=== PATIENT | female | born 1985 | race Caucasian/White ===

== ENCOUNTER 2020-02-13 09:15 | Outpatient (CLI) | payer OTHER ==
[~2020-02-13] VITALS: Ht 157.5 cm; Wt 70.0 kg
[~2020-02-13 09:15] MED LIST: IBUP-1222 PO; LABE100T6 PO; OXYC-302 PO
[2020-02-13 09:35] VITALS: BP 139/87
[2020-02-13] MEDS ORDERED: PREN-3 PO (09:42)
[2020-02-13 09:51] LABS: MICROSCOPIC INDICATED
[2020-02-13] MEDS ORDERED: BETAMETHASONE 6 MG/ML, 5ML IM ONE (10:14)
[2020-02-13] MEDS ORDERED: BETAMETHASONE 6 MG/ML, 5ML IM SCH (10:30)
== END 2020-02-13 12:25 | disposition home or self-care (01) ==
LOC: LDOP 09:15
PROVIDERS: ATTEND Obstetrics & Gynecology
DX: O62.8 Other abnormalities of forces of labor (principal); Z3A.35 35 weeks gestation of pregnancy
CPT/HCPCS: 59025; 81001; 87081; 87086; 87147; 99201; G0463

== ENCOUNTER 2020-02-22 00:59 | Inpatient (IN) | payer OTHER ==
[~2020-02-22] VITALS: Ht 157.5 cm; Wt 70.0 kg
[2020-02-22] VITALS (9 sets, daily range): BP systolic 146–179; BP diastolic 86–112
[~2020-02-22 00:59] MED LIST changes: +PREN-3 PO
[2020-02-22] MEDS ORDERED: D5%-LACTATED RINGERS 1,000 ML IV SCH (01:17)
[2020-02-22] MEDS ORDERED: LACTATED RINGERS 1,000 ML IV SCH (01:17)
[2020-02-22] MEDS ORDERED: FENTANYL/BUPIV./NS/PF 250 ML EPIDCONT SCH (01:17)
[2020-02-22] MEDS ORDERED: OXYTOCIN 30U/ 0.9% NaCL 500ML 500 ML IV ONE (01:17)
[2020-02-22] MEDS ORDERED: FENTANYL PF 100 MCG/2ML ONE (01:24)
[2020-02-22] MEDS ORDERED: LABETALOL 5MG/ML, 20ML ONE ×2 (01:24→17:05)
[2020-02-22] MEDS ORDERED: OXYTOCIN 30U/ 0.9% NaCL 500ML 500 ML ONE ×2 (01:25→03:45)
[2020-02-22] MEDS ORDERED: NEWBORN KIT ONE (01:25)
[2020-02-22] MEDS ORDERED: CLINDAMYCIN PMX 900MG/50ML 50 ML ONE (01:26)
[2020-02-22] MEDS ORDERED: CALCIUM CARBONATE 500 MG TAB.CHEW PO PRN ×2 (01:30→03:30)
[2020-02-22] MEDS ORDERED: LABETALOL 5MG/ML, 20ML IVPush PRN ×3 (01:30)
[2020-02-22] MEDS ORDERED: hydrALAzine 20 MG/ML, 1ML IVPush ONE (01:30)
[2020-02-22] MEDS ORDERED: SODIUM CITRATE/CITRIC ACID 30 ML UDC PO PRN (01:30)
[2020-02-22] MEDS ORDERED: TERBUTALINE 1 MG/ML, 1ML SQ PRN (01:30)
[2020-02-22] MEDS ORDERED: LACTATED RINGERS 1,000 ML IVBOLUS PRN (01:30)
[2020-02-22] MEDS ORDERED: FENTANYL PF 100 MCG/2ML IVPush PRN (01:30)
[2020-02-22] MEDS ORDERED: TERBUTALINE 1 MG/ML, 1ML IVPush PRN (01:30)
[2020-02-22] MEDS ORDERED: CLINDAMYCIN PMX 900MG/50ML 50 ML IVPB SCH (01:30)
[2020-02-22] MEDS ORDERED: FENTANYL PF 100 MCG/2ML IV PRN (01:30)
[2020-02-22] MEDS ORDERED: METOCLOPRAMIDE 5 MG/ML, 2ML IVPush PRN (01:30)
[2020-02-22] MEDS ORDERED: ONDANSETRON 2MG/ML, 2ML IVPush PRN (01:30)
[2020-02-22 01:49] LABS: BASOPHILS # (AUTO) 0.05 x10^3/uL (0-0.1); BASOPHILS % (AUTO) 0 % (0-1); EOSINOPHILS # (AUTO) 0.11 x10^3/uL (0-0.4); EOSINOPHILS % (AUTO) 1 % (1-7); LYMPHOCYTES # (AUTO) 3.52 x10^3/uL (1-3.4); LYMPHOCYTES % (AUTO) 33 % (22-44); MD NO; MEAN CORPUSCULAR HEMOGLOBIN 30.7 pg (27.0-34.8); MEAN CORPUSCULAR HGB CONC 34.3 g/dL (32.4-35.8); MEAN CORPUSCULAR VOLUME 89.7 fL (80-100); MEAN PLATELET VOLUME 9.6 fL (7.4-10.4); MONOCYTES # (AUTO) 0.79 x10^3/uL (0.2-0.8); MONOCYTES % (AUTO) 7 % (2-9); NEUTROPHILS # (AUTO) 6.22 x10^3/uL (1.8-6.8); NEUTROPHILS % (AUTO) 58 % (42-75); PLATELET COUNT 202 x10^3/uL (130-400); RED BLOOD COUNT 4.24 x10^6/uL (3.82-5.3); RED CELL DISTRIBUTION WIDTH 14.6 % (9.6-15.2)
[2020-02-22 01:59] LABS: ALANINE AMINOTRANSFERASE 9 U/L (12-78); ALBUMIN 1.8 g/dL (3.4-5.0); ANION GAP 10 mmol/L (5-15); CALCIUM 8.6 mg/dL (8.5-10.1); CHLORIDE 107 mmol/L (98-107); CREATININE 0.87 mg/dL (0.55-1.02)
[2020-02-22 02:01] LABS: ALKALINE PHOSPHATASE 292 U/L (45-117); BILIRUBIN,TOTAL 0.2 mg/dL (0.2-1.0); TOTAL PROTEIN 5.5 g/dL (6.4-8.2)
[2020-02-22 02:03] LABS: BILIRUBIN, DIRECT < 0.1 mg/dL (0.1-0.2)
[2020-02-22] MEDS ORDERED: BUPIVACAINE 0.25% ONE (02:13)
[2020-02-22] MEDS ORDERED: OXYTOCIN 30U/ 0.9% NaCL 500ML 500 ML IV SCH (03:01)
[2020-02-22] MEDS ORDERED: HYDROcodone/APAP 5/325 TABLET ONE (03:03)
[2020-02-22] MEDS ORDERED: IBUPROFEN 600 MG TABLET ONE (03:10)
[2020-02-22] MEDS: HYDROcodone/APAP 5/325 TABLET PO PRN ×2 (03:13→07:42)
[2020-02-22] MEDS ORDERED: ONDANSETRON 2MG/ML, 2ML IV PRN (03:30)
[2020-02-22] MEDS ORDERED: ACETAMINOPHEN 325 MG TABLET PO PRN (03:30)
[2020-02-22] MEDS ORDERED: MISOPROSTOL 200 MCG TABLET PR PRN (03:30)
[2020-02-22] MEDS ORDERED: HYDROcodone/APAP 5/325 TABLET PO PRN (03:30)
[2020-02-22] MEDS ORDERED: SIMETHICONE 80 MG CHEW TAB PO PRN (03:30)
[2020-02-22 03:38] LABS: MICROSCOPIC INDICATED
[2020-02-22 03:48] LABS: CREATININE,URINE RANDOM 46.3 mg/dL
[2020-02-22] MEDS: PRENATAL VIT/IRON/FA 1 EACH TABLET PO SCH (07:42)
[2020-02-22 11:14] LABS: MEAN CORPUSCULAR HEMOGLOBIN 30.7 pg (27.0-34.8); MEAN CORPUSCULAR VOLUME 90.3 fL (80-100); MEAN PLATELET VOLUME 9.3 fL (7.4-10.4); PLATELET COUNT 189 x10^3/uL (130-400); RED BLOOD COUNT 3.63 x10^6/uL (3.82-5.3); RED CELL DISTRIBUTION WIDTH 14.3 % (9.6-15.2)
[2020-02-22 11:36] LABS: BASOPHILS # (AUTO) 0.05 x10^3/uL (0-0.1); BASOPHILS % (AUTO) 0 % (0-1); EOSINOPHILS # (AUTO) 0.02 x10^3/uL (0-0.4); EOSINOPHILS % (AUTO) 0 % (1-7); LYMPHOCYTES # (AUTO) 2.36 x10^3/uL (1-3.4); LYMPHOCYTES % (AUTO) 17 % (22-44); MD SCAN; MONOCYTES % (AUTO) 5 % (2-9); NEUTROPHILS # (AUTO) 10.73 x10^3/uL (1.8-6.8); NEUTROPHILS % (AUTO) 77 % (42-75)
[2020-02-22] MEDS: ACETAMINOPHEN 325 MG TABLET PO PRN ×2 (11:59→17:01)
[2020-02-22] MEDS ORDERED: LABETALOL 5MG/ML, 20ML IVPush ONE (17:00)
[2020-02-22] MEDS: niFEDipine ER 30 MG TABLET.ER PO SCH (17:00)
[2020-02-23 00:10] VITALS: BP 138/90
[2020-02-23 04:15] VITALS: BP 134/83
[2020-02-23] MEDS: ACETAMINOPHEN 325 MG TABLET PO PRN ×4 (04:40→20:23)
[2020-02-23 07:34] VITALS: BP 129/87
[2020-02-23] MEDS: DOCUSATE 100 MG CAPSULE PO PRN ×2 (08:12→20:23)
[2020-02-23] MEDS: niFEDipine ER 30 MG TABLET.ER PO SCH (08:12)
[2020-02-23] MEDS: PRENATAL VIT/IRON/FA 1 EACH TABLET PO SCH (08:12)
[2020-02-23 12:34] VITALS: BP 128/81
[2020-02-23 16:33] VITALS: BP 126/81
[2020-02-23 20:00] VITALS: BP 137/83
[2020-02-24 00:15] VITALS: BP 142/94
[2020-02-24 03:53] VITALS: BP 145/89
[2020-02-24 08:30] VITALS: BP 146/100
[2020-02-24] MEDS: PRENATAL VIT/IRON/FA 1 EACH TABLET PO SCH (08:34)
[2020-02-24] MEDS: DOCUSATE 100 MG CAPSULE PO PRN (08:35)
[2020-02-24] MEDS: ACETAMINOPHEN 325 MG TABLET PO PRN (08:35)
[2020-02-24] MEDS: niFEDipine ER 30 MG TABLET.ER PO SCH (08:35)
[2020-02-24 12:27] VITALS: BP 150/91
[2020-02-24] MEDS ORDERED: ACET325T26 PO (13:30)
[2020-02-24] MEDS ORDERED: CALC500T29 PO (13:30)
[2020-02-24] MEDS ORDERED: SIME80TA15 PO (13:32)
[2020-02-24] MEDS ORDERED: OXYC-302 PO (13:33)
[2020-02-24] MEDS ORDERED: NIFE30TA2 PO (13:34)
[2020-02-24] MEDS ORDERED: IBUP-1223 PO (13:34)
== END 2020-02-24 14:20 | disposition home or self-care (01) | DRG 807 ==
LOC: LDOP 00:59 → LDIP 01:19 → 2NW 05:21
PROVIDERS: ADMIT Obstetrics & Gynecology; ATTEND Obstetrics & Gynecology
PROC: 10E0XZZ Delivery of Products of Conception, External Approach (ICD-10-PCS; principal; 2020-02-22)
DX: O14.14 Severe pre-eclampsia complicating childbirth (principal); Z37.0 Single live birth; O60.14X0 Preterm labor third trimester with preterm delivery third trimester, not applicable or unspecified; O99.824 Streptococcus B carrier state complicating childbirth; Z3A.36 36 weeks gestation of pregnancy; Z88.0 Allergy status to penicillin; Z88.2 Allergy status to sulfonamides
CPT/HCPCS: 36415; 80053; 81001; 82248; 82570; 83615; 84156; 84550; 85025; 86592; 86850; 86900; G0378; J2590; J3010; J7120